=== PATIENT | female | born 1975 | race Caucasian/White ===

== ENCOUNTER 2021-06-10 15:21 | Emergency (ER) | payer MEDICAID ==
--- NOTE | 2021-06-10 16:16 | EDM.PDOC ---
ED HPI GENERAL MEDICAL PROBLEM - General Chief Complaint: Head Injury Stated Complaint: EMS ARRIVAL Time Seen by Provider: 06/10/21 15:33 - History of Present Illness INITIAL COMMENTS - FREE TEXT/NARRATIVE: Patient is a 45-year-old female with a history of seizure disorder HAND SUTURE WINDER shunt when she was a child but long since nonoperative with a history of balance issues at times but very high functioning who presents after a fall. Patient does not remember the fall. She fell down 1-2 steps. She has some moderate headache but denies any neck pain she also reports mild right hip pain. No nausea or vomiting no shortness of breath or chest pain patient denies any palpitations nausea vomiting abdominal pain shortness of breath or chest pain immediately prior to the fall or immediately after the fall. She is unsure if she lost c onsciousness. head Pain Score (Numeric/FACES): 5 - Related Data Allergies Allergy/AdvReac Type Severity Reaction Status Date / Time No Known Allergies Allergy Verified 06/10/21 15:28 Home Meds: Home Meds Celecoxib 06/10/21 [History] Folic Acid 06/10/21 [History] Gabapentin [Gralise] 06/10/21 [History] Pantoprazole [ProTONIX] 06/10/21 [History] QUEtiapine [SEROquel] 06/10/21 [History] atorvaSTATin [Lipitor] 06/10/21 [History] carBAMazepine [Carbamazepine] 06/10/21 [History] Past Medical History HEENT History: Reports: None Cardiovascular History: Reports: None Respiratory History: Reports: None Gastrointestinal History: Reports: None Genitourinary History: Reports: None [employer] History: Reports: None Musculoskeletal History: Reports: None Neurological History: Reports: Seizure Other Neuro History: delvelopmentally delayed Psychiatric History: Reports: None Endocrine/Metabolic History: Reports: None Hematologic History: Reports: None Immunologic History: Reports: None Oncologic (Cancer) History: Reports: None Dermatologic History: Reports: None - Infectious Disease History Infectious Disease History: Reports: None - Past Surgical History Head Surgeries/Procedures: Reports: None Social & Family History - Family History Family Medical History: No Pertinent Family History - Tobacco Use Tobacco Use Status *Q: Never Tobacco User Second Hand Smoke Exposure: No - Caffeine Use Caffeine Use: Reports: None - Recreational Drug Use Recreational Drug Use: No ED ROS GENERAL - Review of Systems Review Of Systems: See Below Free Text/Narrative/Comment: General: No fever. Skin: No rash. Eyes: No vision problems. ENT: No sore throat. Neck: No neck stiffness. Respiratory: No shortness of breath. Cardiac: No chest pain. Gastrointestinal: No nausea, vomiting or abdominal pain. Musculoskeletal: Per HPI Neurologic: Per HPI ED EXAM, HEAD INJURY - Physical Exam Exam: See Below Text/Narrative:: General Appearance: No acute distress, appears comfortable Skin: No rash HEENT: Suggestion of occipital scalp laceration not adequately visualized on initial assessment, sclera anicteric, mucous membranes moist Neck: Midline tenderness at C7 without deformity c-collar to remain in place Chest and Lungs: Bilateral breath sounds, clear to auscultation Cardiovascular: Regular rate and rhythm, no murmur Abdomen: Soft, non-tender Back: Normal Musculoskeletal: Bilaterally intact DP pulses minimal discomfort with logroll of the right hip focal tenderness over the right greater trochanter extremities bilaterally equal length major joints otherwise without focal tenderness swelling or deformity Neurologic: Awake, alert, no obvious deficits, moving all extremities Psychiatric: Appropriate, cooperative ED LACERATION/WOUND & FRANCIS PROC - Additional/Other Procedure(s) Other (Free Text) Procedure(s): Laceration Repair Procedure Location: Right occipital scalp Length: 4 cm Suture size and type: Ciara Number of sutures: 6 Complexity: Simple Time out: Yes, confirmed patient, place, procedure correct Consent: Verbal Suture technique: Simple interrupted Procedure: The wound was irrigated copiously with normal saline or sterile water. Close inspection revealed no evidence for retained foreign bodies. Anesthesia was achieved using lidocaine. Sutures were placed using the above technique with approximation of the wound edges. Sterile dressing was applied to the closed wound. Complications: None Performed by: Jose Gale MD Course - Vital Signs Last Recorded V/S: Last Vital Signs Temp 98.4 F 06/10/21 17:04 Pulse 119 H 06/10/21 17:04 Resp 17 06/10/21 17:04 BP 140/82 06/10/21 17:04 Pulse Ox 96 06/10/21 17:04 - Orders/Labs/Meds Meds: Medications Discontinued Medications Generic Name Dose Route Start Last Admin Trade Name Freq PRN Reason Stop Dose Admin Lidocaine/Epinephrine 10 ml 06/10/21 17:34 06/10/21 17:41 Lidocaine 1% With Epinephrine 1:100,000 10 Ml Mdv INJECT 06/10/21 17:35 Not Given ONETIME ONE Lidocaine/Epinephrine 20 ml 06/10/21 17:37 06/10/21 17:43 Lidocaine 1% With Epinephrine 1:100,000 20 Ml Mdv INJECT 06/10/21 17:38 20 ml ONETIME ONE Administration Lidocaine/Epinephrine Confirm 06/10/21 17:37 06/10/21 17:41 Lidocaine 1% With Epinephrine 1:100,000 20 Ml Mdv Administered 06/10/21 17:38 Not Given Dose 20 ml .ROUTE .STK-MED ONE Departure - Departure Time of Disposition: 17:49 Disposition: Home, Self-Care 01 Condition: Good Clinical Impression: Scalp laceration, T12 compression fracture - Discharge Information *PRESCRIPTION DRUG MONITORING PROGRAM REVIEWED*: Not Applicable *COPY OF PRESCRIPTION DRUG MONITORING REPORT IN PATIENT EDDI: Not Applicable Instructions: Thoracic Spine Fracture, Laceration Care, Adult, [id number] Referrals: PCP,None [Primary Care Provider] - Forms: ED Department Discharge Additional Instructions: Your scalp ciara need to be removed in 10 days. This can be done at an urgent care ER like facility or at some primary care doctors offices. You have a very mild endplate compression fracture of the first thoracic vertebra. A neurosurgeon in [place] was able to review your images and this type of broken bone does not require any type of surgery or bracing it should heal just fine on its own. However, if you are having any neck pain or other concerns regarding this injury that do not resolve within 2 weeks you are encouraged to follow-up with Dr. Anand at his clinic in [place]. [facility] [address] [address] The following information is given to patients seen in the emergency department who are being discharged to home. This information is to outline your options for follow-up care. We provide all patients seen in our emergency department with a follow-up referral. The need for follow-up, as well as the timing and circumstances, are variable depending upon the specifics of your emergency department visit. If you don't have a primary care physician on staff, we will provide you with a referral. We always advise you to contact your personal physician following an emergency department visit to inform them of the circumstance of the visit and for follow-up with them and/or the need for any referrals to a consulting specialist. The emergency department will also refer you to a specialist when appropriate. This referral assures that you have the opportunity for follow-up care with a specialist. All of these measure are taken in an effort to provide you with optimal care, which includes your follow-up. Under all circumstances we always encourage you to contact your private physician who remains a resource for coordinating your care. When calling for follow-up care, please make the office aware that this follow-up is from your recent emergency room visit. If for any reason you are refused follow-up, please contact the [facility] Emergency Department at and asked to speak to the emergency department charge nurse. Sepsis Event Note (ED) - Evaluation Sepsis Screening Result: No Definite Risk - Focused Exam Vital Signs: Vital Signs Temp Pulse Resp BP Pulse Ox 06/10/21 17:04 98.4 F 119 H 17 140/82 96 06/10/21 15:24 98.1 F 118 H 18 141/87 H 98 - Assessment/Plan Assessment:: 45-year-old female presents after fall as described above. Primary survey intact secondary survey notable for signs of head trauma and right hip pain. As well as neck findings c-collar remained in place CT scan of the brain and C- spine and right hip x-rays been ordered. I believe you can clinically clear the T and L-spine as well as the chest abdomen bony pelvis and other extremities. 1750: Patient's CT scan of the brain shows no acute process CT scan of the C- spine shows a mild endplate compression fracture of T1. Patient discussed in full with Dr. Anand. No indication for any type of bracing or other intervention however if she continues to have difficulty for longer than 2 weeks she is encouraged to follow-up with him in his clinic in [place]. Laceration was repaired without immediate complication patient ambulatory with steady gait discharged with return precautions and follow-up instructions.
--- NOTE | 2021-06-10 16:33 | CT ---
INDICATION: Head and neck pain after a fall. TECHNIQUE: Noncontrast images. FINDINGS: Right parietal ventriculostomy cannula. Tip is at the left lateral ventricle. Small scalp hematoma posterior parietal pole region above this. Intact calvarium. No intra axial or extra-axial hemorrhage or fluid. Sulci and ventricles are within normal limits. IMPRESSION: 1. Right high parietal scalp hematoma. 2. Chronic appearing right parietal ventriculostomy. Please note that all CT scans at this facility use dose modulation, iterative reconstruction, and/or weight-based dosing when appropriate to reduce radiation dose to as low as reasonably achievable. Dictated by Tevin Garcia MD @ 06/10/2021 4:32:03 PM (Electronically Signed)
--- NOTE | 2021-06-10 16:37 | CT ---
INDICATION: Neck pain after fall. TECHNIQUE: CT cervical spine without contrast. COMPARISON: None FINDINGS: Subtle fracture lucency at the anterior superior endplate of T1 (image 51 through 58 series 305). Mildly prominent for age degenerative disc height loss and anterior osteophytes C6-C7 and C7-T1. Mild uncovertebral hypertrophy causes some minimal neural foraminal narrowing bilaterally at T1. No prevertebral soft tissue swelling of significance. Foci of ossification of the posterior longitudinal ligament C3-4 and C4-5 disc levels. Some nuchal ligament ossification T 3 4 with ankylosis of those facets. IMPRESSION: 1. Subtle nondisplaced curvilinear acute fracture through the anterior superior T1 endplate. 2. Multilevel degenerative spondylosis. Please note that all CT scans at this facility use dose modulation, iterative reconstruction, and/or weight-based dosing when appropriate to reduce radiation dose to as low as reasonably achievable. Dictated by Tevin Garcia MD @ 06/10/2021 4:35:24 PM (Electronically Signed)
--- NOTE | 2021-06-10 16:56 | CR ---
INDICATION: Pain after fall. COMPARISON: None available. TECHNIQUE: The right hip was examined with AP and cross-table lateral views. An AP view of the pelvis is obtained for a total of three views. FINDINGS: There is no sign of fracture or dislocation of the right hip. The right femoral head and acetabulum are in anatomic alignment. There is moderate primary osteoarthritis of the right hip. There is mild joint space narrowing, moderate lateral osteophyte formation, and mild sclerosis of the articular surfaces. The left hip is unremarkable. The SI joints and pubic symphysis are normal in appearance. The rest of the bony pelvis and soft tissues are normal in appearance. There is mild scoliosis of the lumbar spine convex towards the left. The inferior ends of Wan rods and hooks are seen at the L4 level. IMPRESSION: No sign of acute osseous injury of the right hip or pelvis. Moderate primary osteoarthritis of the right hip. Mild scoliosis of the lumbar spine convex towards the left with changes of fusion. Dictated by Juventino Alvarado MD @ 06/10/2021 4:54:46 PM (Electronically Signed)
[2021-06-10] MEDS ORDERED: Lidocaine 1% with EPINEPHrine 1:100,000 10 ML MDV INJECT ONE (17:34)
[2021-06-10] MEDS ORDERED: Lidocaine 1% with EPINEPHrine 1:100,000 20 ML MDV ONE (17:37)
[2021-06-10] MEDS ORDERED: Lidocaine 1% with EPINEPHrine 1:100,000 20 ML MDV INJECT ONE (17:37)
== END 2021-06-10 18:26 | disposition home or self-care (01) ==
LOC: MW.ED 15:21
DX: S22.080A Wedge compression fracture of T11-T12 vertebra, initial encounter for closed fracture (principal); S01.01XA Laceration without foreign body of scalp, initial encounter; Z79.899 Other long term (current) drug therapy; W10.8XXA Fall (on) (from) other stairs and steps, initial encounter
CPT/HCPCS: 12002; 70450; 70450-26; 72125; 72125-26; 73502-26-RT; 73502-RT; 99284-25